=== PATIENT | female | born 1945 | race Caucasian/White ===

== ENCOUNTER 2021-04-15 19:12 | Inpatient (IN) | payer MEDICARE ==
[2021-04-15] MEDS ORDERED: Morphine 4 MG/ML VIAL SLOW IVP SCH (22:00)
[2021-04-15] MEDS ORDERED: Dextrose 5% in Water 1,000 ML IV PRN (22:02)
[2021-04-15] MEDS ORDERED: Dextrose 50% Abboject 50 ML SYRINGE SLOW IVP PRN (22:02)
[2021-04-15] MEDS ORDERED: Ondansetron PF 4 MG/2 ML Vial IVP PRN (22:02)
[2021-04-15] MEDS ORDERED: Famotidine/PF 20 mg/2ml Vial SLOW IVP SCH (22:15)
[2021-04-15 22:26] LABS: #Basophils 0.1 10x3/uL (0.0-0.2); #Eosinphils 0.1 10x3/uL (0.0-0.5); #Monocytes 0.8 10x3/uL (0.0-1.1); #Neutrophils 15.6 10x3/uL (1.5-8.4); %Basophils 0.3 % (0.0-2.0); %Eosinophils 0.3 % (0.0-6.0); %Lymphocytes 12.5 % (18.0-47.0); %Monocytes 4.1 % (0.0-10.0); Hemoglobin 15.7 g/dL (12.0-15.5); Mean Corpuscular HGB CONC 34.8 g/dL (32.0-36.0); Mean Corpuscular Hemoglobin 29.2 pg (27.0-33.0); Mean Platelet Volume 10.4 fl (7.4-10.4); Platelet Count 324 10x3/uL (150-450); RBC Distribution Width 16.2 % (11.5-14.5); Red Blood Cell (RBC) Count 5.37 10x6/uL (3.90-5.03)
[2021-04-15] MEDS ORDERED: Sodium Chloride 0.9% 1,000 ML IV SCH (22:30)
[2021-04-15 22:38] LABS: INR-International Normal Ratio 1.4; PTT 40.4 sec (22.0-33.0); Prothrombin Time 15.1 sec (9.5-12.1)
[2021-04-15 22:42] LABS: ALT (SGPT) 592 U/L (8-55); AST (SGOT) 757 U/L (5-34); Alkaline Phosphatase 580 U/L (40-110); Anion Gap 23 mmol/L (10-20); BUN (Urea Nitrogen) 78 mg/dL (9.8-20.1); Calc. Creatinine Clearance 13 mL/min (70-130); Calcium 7.2 mg/dL (7.8-10.44); Carbon Dioxide 19 mmol/L (23-31); Chloride 92 mmol/L (98-107); Cholesterol 427 mg/dl (< 200 Desired); Globulin 2.9 g/dL (2.4-3.5); Glucose 330 mg/dL (83-110); HDL Cholesterol 7 mg/dL (>60 Neg Risk); Lipase 129 U/L (8-78); Potassium 4.2 mmol/L (3.5-5.1); Protein, Total 4.9 g/dL (5.8-8.1); Sodium 130 mmol/L (136-145); Triglycerides 404 mg/dL (Less than 150)
[2021-04-15] MEDS ORDERED: Meropenem 1 GM in Sodium Chloride 0.9% 100 ML IVPB SCH (22:45)
[2021-04-15] MEDS: Sodium Chloride 0.9% 1,000 ML IV SCH (23:43)
[2021-04-16 01:15] LABS: Lactic Acid 1.7 mmol/L (0.5-2.2)
[2021-04-16] MEDS: HumaLOG 300 UNITS/3 ML VIAL SC PRN ×4 (01:40→22:42)
[2021-04-16] MEDS: Morphine 4 MG/ML VIAL SLOW IVP PRN (03:06)
[2021-04-16 08:50] LABS: Hemoglobin 14.9 g/dL (12.0-15.5); Mean Corpuscular HGB CONC 33.7 g/dL (32.0-36.0); Mean Corpuscular Hemoglobin 28.9 pg (27.0-33.0); Mean Corpuscular Volume 85.7 fl (81.6-98.3); Mean Platelet Volume 10.1 fl (7.4-10.4); Platelet Count 321 10x3/uL (150-450); RBC Distribution Width 16.5 % (11.5-14.5); Red Blood Cell (RBC) Count 5.16 10x6/uL (3.90-5.03); White Blood Cell (WBC) Count 20.8 10x3/uL (3.5-10.5)
[2021-04-16 08:52] LABS: MDiff Complete? YES
[2021-04-16 08:54] LABS: Lactic Acid 2.2 mmol/L (0.5-2.2)
[2021-04-16 08:58] LABS: ALT (SGPT) 540 U/L (8-55); AST (SGOT) 666 U/L (5-34); Albumin 1.8 g/dL (3.4-4.8); Alkaline Phosphatase 559 U/L (40-110); Anion Gap 23 mmol/L (10-20); BUN (Urea Nitrogen) 87 mg/dL (9.8-20.1); Bilirubin, Total 8.4 mg/dL (0.2-1.2); Calc. Creatinine Clearance 12 mL/min (70-130); Calcium 6.8 mg/dL (7.8-10.44); Carbon Dioxide 18 mmol/L (23-31); Chloride 95 mmol/L (98-107); Globulin 3.1 g/dL (2.4-3.5); Glucose 303 mg/dL (83-110); Potassium 4.6 mmol/L (3.5-5.1); Protein, Total 4.9 g/dL (5.8-8.1); Sodium 131 mmol/L (136-145)
[2021-04-16 09:14] LABS: Eosinophils 1 % (0-10); Lymphocytes 14 % (21-51); Monocytes 4 % (0-10); Neutrophil 81 % (42-75); Platelet Morphology Comment Appears Adequate
[2021-04-16 09:15] LABS: RBC Morphology Normal
[2021-04-16] MEDS ORDERED: Albumin 25% 25 GM/100 ML BOT IVPB SCH (09:45)
[2021-04-16] MEDS: Heparin 5,000 UNITS/ML VIAL SC SCH ×3 (11:32→22:17)
[2021-04-16] MEDS: Sodium Chloride 0.9% 1,000 ML IV SCH ×2 (11:46→15:51)
[2021-04-16] MEDS: Meropenem 500 MG in Sodium Chloride 0.9% 100 ML IVPB SCH (11:54)
[2021-04-16 12:45] LABS: Hemoglobin A1c 8.9 % (4.0-6.0)
[2021-04-16] MEDS ORDERED: PROPOFOL 20 ML ONE (13:22)
[2021-04-16] MEDS ORDERED: Fentanyl 100 MCG/2 ML VIAL ONE ×2 (13:22→15:13)
[2021-04-16] MEDS ORDERED: Dexamethasone 4 mg/ml Vial ONE (13:23)
[2021-04-16] MEDS ORDERED: Ondansetron PF 4 MG/2 ML Vial ONE (13:23)
[2021-04-16] MEDS ORDERED: Rocuronium Bromide 10 MG/ML (10ML VIAL) ONE (13:23)
[2021-04-16] MEDS ORDERED: Lidocaine 1% PF 5 ML VIAL ONE (13:23)
[2021-04-16] MEDS ORDERED: Succinylcholine 200 MG/10 ml SYRINGE FS ONE (13:23)
[2021-04-16] MEDS ORDERED: Indomethacin 50 MG SUPP PR SCH (14:00)
[2021-04-16 14:04] LABS: ANA Symphony (Qualitative) Negative (Negative); ANA Symphony (Quantitative) 0.4 Ratio (< 0.7 Negative)
[2021-04-16] MEDS ORDERED: Iopamidol 15 ML ONE (14:17)
[2021-04-16] MEDS ORDERED: PHENYLEPHRINE-NS 100 MCG/ML 10 ML SYRINGE ONE ×2 (15:13→15:28)
[2021-04-16] MEDS ORDERED: Glycopyrrolate 0.2 MG/ML 5 ML SYRINGE ONE (15:26)
[2021-04-16] MEDS ORDERED: SUGAMMADEX SODIUM 200 MG/2 ML VIAL ONE (15:57)
[2021-04-16] MEDS: Famotidine/PF 20 mg/2ml Vial SLOW IVP SCH (22:17)
[2021-04-17] MEDS: Meropenem 500 MG in Sodium Chloride 0.9% 100 ML IVPB SCH ×3 (00:12→23:36)
[2021-04-17] MEDS: Sodium Chloride 0.9% 1,000 ML IV SCH ×2 (00:16→07:27)
[2021-04-17 06:01] LABS: ALT (SGPT) 490 U/L (8-55); AST (SGOT) 522 U/L (5-34); Albumin 1.9 g/dL (3.4-4.8); Alkaline Phosphatase 591 U/L (40-110); Anion Gap 25 mmol/L (10-20); BUN (Urea Nitrogen) 106 mg/dL (9.8-20.1); Bilirubin, Total 9.5 mg/dL (0.2-1.2); Calc. Creatinine Clearance 10 mL/min (70-130); Calcium 6.2 mg/dL (7.8-10.44); Carbon Dioxide 10 mmol/L (23-31); Chloride 97 mmol/L (98-107); Globulin 3.1 g/dL (2.4-3.5); Glucose 351 mg/dL (83-110); Potassium 5.4 mmol/L (3.5-5.1); Sodium 127 mmol/L (136-145)
[2021-04-17] MEDS: HumaLOG 300 UNITS/3 ML VIAL SC PRN ×4 (06:41→21:15)
[2021-04-17 07:12] LABS: Hemoglobin 15.4 g/dL (12.0-15.5); Mean Corpuscular HGB CONC 35.2 g/dL (32.0-36.0); Mean Corpuscular Hemoglobin 29.7 pg (27.0-33.0); Mean Corpuscular Volume 84.4 fl (81.6-98.3); Mean Platelet Volume 10.3 fl (7.4-10.4); Platelet Count 298 10x3/uL (150-450); RBC Distribution Width 16.6 % (11.5-14.5); Red Blood Cell (RBC) Count 5.19 10x6/uL (3.90-5.03); White Blood Cell (WBC) Count 23.8 10x3/uL (3.5-10.5)
[2021-04-17 07:15] LABS: MDiff Complete? YES
[2021-04-17 07:21] LABS: Lymphocytes 15 % (21-51); Monocytes 5 % (0-10); Neutrophil 80 % (42-75)
[2021-04-17 07:23] LABS: Platelet Morphology Comment Appears Adequate; RBC Morphology Normal
[2021-04-17 10:13] LABS: EBV VCA IgM 40.3 U/mL (0.0-35.9); Nuclear AG IgG (EBNA) AB <18.0 U/mL (0.0-17.9)
[2021-04-17 10:23] LABS: Bilirubin, Direct 7.5 mg/dL (0.1-0.3); Bilirubin, Total 10.3 mg/dL (0.2-1.2)
[2021-04-17] MEDS: Heparin 5,000 UNITS/ML VIAL SC SCH ×3 (10:58→21:13)
[2021-04-17 11:31] LABS: Hep B Surf Ag Non-Reactive S/CO (NonReactive)
[2021-04-17 11:36] LABS: HBSAg Index 0.15 S/CO (0-0.99)
[2021-04-17 15:00] LABS: HBSAB Concentration Less than 8.00 mIU/mL; Hep B Core Total Ab Non-Reactive (NonReactive); Hep B Core Total Index 0.11 S/CO (0-0.79); Hep B Surf AB Non-Reactive (NonReactive); Hep C IgG Ab Non-Reactive (NonReactive); Hep C Index 0.09 S/CO (0-0.79)
[2021-04-17 19:56] LABS: Iron 165 ug/dL (50-170); Iron Binding Capacity, Total 140 mcg/dL (265-497)
[2021-04-17] MEDS: Lantus 1000 UNITS/10 ML VIAL SC SCH (21:14)
[2021-04-17] MEDS: Famotidine/PF 20 mg/2ml Vial SLOW IVP SCH (21:14)
[2021-04-18] MEDS: HumaLOG 300 UNITS/3 ML VIAL SC PRN ×3 (05:02→23:40)
[2021-04-18 05:22] LABS: INR-International Normal Ratio 1.3; Prothrombin Time 14.7 sec (9.5-12.1)
[2021-04-18] MEDS: Morphine 4 MG/ML VIAL SLOW IVP PRN ×3 (05:59→23:41)
[2021-04-18 07:19] LABS: #Monocytes 1.2 10x3/uL (0.0-1.1); #Neutrophils 14.1 10x3/uL (1.5-8.4); %Basophils 0.2 % (0.0-2.0); %Eosinophils 0.2 % (0.0-6.0); %Lymphocytes 12.7 % (18.0-47.0); %Monocytes 6.6 % (0.0-10.0); %Neutrophils 79.5 % (40.0-75.0); Hemoglobin 12.6 g/dL (12.0-15.5); Mean Corpuscular HGB CONC 35.2 g/dL (32.0-36.0); Mean Corpuscular Hemoglobin 29.7 pg (27.0-33.0); Mean Corpuscular Volume 84.4 fl (81.6-98.3); Mean Platelet Volume 10.6 fl (7.4-10.4); Platelet Count 222 10x3/uL (150-450); RBC Distribution Width 16.4 % (11.5-14.5); Red Blood Cell (RBC) Count 4.24 10x6/uL (3.90-5.03); White Blood Cell (WBC) Count 17.7 10x3/uL (3.5-10.5)
[2021-04-18 07:37] LABS: ALT (SGPT) 415 U/L (8-55); AST (SGOT) 381 U/L (5-34); Albumin 2.1 g/dL (3.4-4.8); Alkaline Phosphatase 530 U/L (40-110); Anion Gap 21 mmol/L (10-20); BUN (Urea Nitrogen) 80 mg/dL (9.8-20.1); Bilirubin, Total 10.7 mg/dL (0.2-1.2); Calc. Creatinine Clearance 12 mL/min (70-130); Calcium 7.2 mg/dL (7.8-10.44); Carbon Dioxide 20 mmol/L (23-31); Chloride 95 mmol/L (98-107); Globulin 2.8 g/dL (2.4-3.5); Glucose 265 mg/dL (83-110); Lipase 124 U/L (8-78); Potassium 4.4 mmol/L (3.5-5.1); Protein, Total 4.9 g/dL (5.8-8.1); Sodium 132 mmol/L (136-145)
[2021-04-18] MEDS ORDERED: Albumin 25% 25 GM/100 ML BOT IVPB SCH (09:15)
[2021-04-18] MEDS: Heparin 5,000 UNITS/ML VIAL SC SCH ×3 (13:11→23:28)
[2021-04-18] MEDS: Meropenem 500 MG in Sodium Chloride 0.9% 100 ML IVPB SCH ×2 (13:42→17:10)
[2021-04-18 16:05] LABS: Actual Bicarbonate (HCO3a) 24.6 mEq/L (22-28); Base Excess (BEa) 1.2 mEq/L (-2.0 to +3.0); CO2 Tension 34.6 mmHg (35.0-45.0); Carboxyhemoglobin (COHb) 1.2 gm% (0.0-3.0); Hemoglobin (Hb) 10.9 g/dL (12.0-16.0); O2 Tension (PaO2), arterial 74.3 mmHg (> 70.0); Potassium - ABG Lab 3.7 mmol/L (3.70-5.30); Puncture Site LRA; pH, Arterial 7.47 (7.35-7.45)
[2021-04-18] MEDS ORDERED: Dexamethasone 6 MG in Sodium Chloride 0.9% 50 ML IVPB SCH (18:00)
[2021-04-18 18:20] LABS: Actual Bicarbonate (HCO3a) 21.3 mEq/L (22-28); Base Excess (BEa) -1.2 mEq/L (-2.0 to +3.0); CO2 Tension 28.6 mmHg (35.0-45.0); Calcium, Ionized (arterial) 0.99 mmol/L (1.12-1.30); Hemoglobin (Hb) 11.1 g/dL (12.0-16.0); O2 Tension (PaO2), arterial 77.7 mmHg (> 70.0); Potassium - ABG Lab 3.9 mmol/L (3.70-5.30); Puncture Site LRA; pH, Arterial 7.49 (7.35-7.45)
[2021-04-18 20:06] LABS: #Monocytes 1.2 10x3/uL (0.0-1.1); #Neutrophils 12.8 10x3/uL (1.5-8.4); %Basophils 0.1 % (0.0-2.0); %Eosinophils 0.2 % (0.0-6.0); %Lymphocytes 16.2 % (18.0-47.0); %Monocytes 7.3 % (0.0-10.0); %Neutrophils 75.3 % (40.0-75.0); Hemoglobin 10.8 g/dL (12.0-15.5); Mean Corpuscular Hemoglobin 29.4 pg (27.0-33.0); Mean Corpuscular Volume 84.2 fl (81.6-98.3); Mean Platelet Volume 10.2 fl (7.4-10.4); Platelet Count 99 10x3/uL (150-450); RBC Distribution Width 16.6 % (11.5-14.5); Red Blood Cell (RBC) Count 3.67 10x6/uL (3.90-5.03); White Blood Cell (WBC) Count 16.9 10x3/uL (3.5-10.5)
[2021-04-18] MEDS ORDERED: Dexmedetomidine In 0.9 % NaCl 100 ML IVPB SCH (23:30)
[2021-04-18] MEDS: Lantus 1000 UNITS/10 ML VIAL SC SCH (23:38)
[2021-04-18] MEDS: Famotidine/PF 20 mg/2ml Vial SLOW IVP SCH (23:43)
[2021-04-18] MEDS: Dexamethasone 20 MG/5 ML VIAL SLOW IVP SCH (23:44)
[2021-04-19] MEDS: Meropenem 500 MG in Sodium Chloride 0.9% 100 ML IVPB SCH ×2 (02:44→15:18)
[2021-04-19] MEDS: Ventolin HFA Inhaler 60 PUFF INHALER INH PRN ×2 (08:33→14:59)
[2021-04-19 08:56] LABS: INR-International Normal Ratio 1.2; Prothrombin Time 13.5 sec (9.5-12.1)
[2021-04-19 09:00] LABS: #Eosinphils 0.1 10x3/uL (0.0-0.5); #Neutrophils 9.8 10x3/uL (1.5-8.4); %Basophils 0.1 % (0.0-2.0); %Eosinophils 0.7 % (0.0-6.0); %Lymphocytes 17.6 % (18.0-47.0); %Monocytes 7.2 % (0.0-10.0); %Neutrophils 73.6 % (40.0-75.0); ALT (SGPT) 288 U/L (8-55); AST (SGOT) 306 U/L (5-34); Albumin 2.7 g/dL (3.4-4.8); Alkaline Phosphatase 820 U/L (40-110); Anion Gap 21 mmol/L (10-20); BUN (Urea Nitrogen) 72 mg/dL (9.8-20.1); Bilirubin, Total 20.8 mg/dL (0.2-1.2); Calc. Creatinine Clearance 15 mL/min (70-130); Calcium 8.1 mg/dL (7.8-10.44); Carbon Dioxide 22 mmol/L (23-31); Chloride 95 mmol/L (98-107); Globulin 2.4 g/dL (2.4-3.5); Glucose 171 mg/dL (83-110); Hemoglobin 9.4 g/dL (12.0-15.5); Mean Corpuscular HGB CONC 34.4 g/dL (32.0-36.0); Mean Corpuscular Hemoglobin 29.5 pg (27.0-33.0); Mean Corpuscular Volume 85.6 fl (81.6-98.3); Mean Platelet Volume 10.3 fl (7.4-10.4); Platelet Count 55 10x3/uL (150-450); Potassium 4.2 mmol/L (3.5-5.1); Protein, Total 5.1 g/dL (5.8-8.1); RBC Distribution Width 17.4 % (11.5-14.5); Red Blood Cell (RBC) Count 3.19 10x6/uL (3.90-5.03); Sodium 134 mmol/L (136-145); White Blood Cell (WBC) Count 13.3 10x3/uL (3.5-10.5)
[2021-04-19] MEDS: HumaLOG 300 UNITS/3 ML VIAL SC PRN (09:03)
[2021-04-19] MEDS: Heparin 5,000 UNITS/ML VIAL SC SCH (09:44)
[2021-04-19 10:04] LABS: Anisocytosis SLIGHT = 6-15 cells (100X) (0-5/hpf); Polychromasia SLIGHT = 2-3 cells (100X) (0-2/hpf)
[2021-04-19 10:05] LABS: Schistocytes SLIGHT = 2-5 cells (100X) (0-1/hpf)
[2021-04-19 10:06] LABS: Platelet Morphology Comment Appears Decreased
[2021-04-19 11:33] LABS: SARS-CoV-2 PCR by NAA Not Detected (NotDetected)
[2021-04-19] MEDS: Dexamethasone 20 MG/5 ML VIAL SLOW IVP SCH (17:36)
[2021-04-19] MEDS: Famotidine/PF 20 mg/2ml Vial SLOW IVP SCH (21:49)
[2021-04-19] MEDS ORDERED: Famotidine/PF 20 mg/2ml Vial ONE (21:49)
[2021-04-19] MEDS: Lantus 1000 UNITS/10 ML VIAL SC SCH (21:50)
[2021-04-20] MEDS: Meropenem 500 MG in Sodium Chloride 0.9% 100 ML IVPB SCH ×2 (02:48→15:25)
[2021-04-20 05:33] LABS: INR-International Normal Ratio 1.2; Prothrombin Time 13.4 sec (9.5-12.1)
[2021-04-20 05:34] LABS: Bilirubin, Total 27.2 mg/dL (0.2-1.2)
[2021-04-20 05:51] LABS: #Monocytes 0.7 10x3/uL (0.0-1.1); #Neutrophils 9.9 10x3/uL (1.5-8.4); %Basophils 0.1 % (0.0-2.0); %Eosinophils 0.1 % (0.0-6.0); %Lymphocytes 8.9 % (18.0-47.0); %Monocytes 5.9 % (0.0-10.0); %Neutrophils 83.7 % (40.0-75.0); Hemoglobin 8.7 g/dL (12.0-15.5); Mean Corpuscular HGB CONC 35.1 g/dL (32.0-36.0); Mean Corpuscular Hemoglobin 29.6 pg (27.0-33.0); Mean Corpuscular Volume 84.4 fl (81.6-98.3); Platelet Count 50 10x3/uL (150-450); RBC Distribution Width 18.4 % (11.5-14.5); Red Blood Cell (RBC) Count 2.94 10x6/uL (3.90-5.03); White Blood Cell (WBC) Count 11.8 10x3/uL (3.5-10.5)
[2021-04-20 06:09] LABS: ALT (SGPT) 234 U/L (8-55); AST (SGOT) 306 U/L (5-34); Albumin 2.6 g/dL (3.4-4.8); Alkaline Phosphatase 1112 U/L (40-110); Anion Gap 21 mmol/L (10-20); BUN (Urea Nitrogen) 64 mg/dL (9.8-20.1); Calc. Creatinine Clearance 16 mL/min (70-130); Calcium 8.3 mg/dL (7.8-10.44); Carbon Dioxide 21 mmol/L (23-31); Chloride 96 mmol/L (98-107); Globulin 2.4 g/dL (2.4-3.5); Glucose 175 mg/dL (83-110); Potassium 4.6 mmol/L (3.5-5.1); Sodium 133 mmol/L (136-145)
[2021-04-20] MEDS: HumaLOG 300 UNITS/3 ML VIAL SC PRN ×2 (10:19→16:19)
[2021-04-20] MEDS ORDERED: Rifaximin 550 MG TAB PO SCH (11:15)
[2021-04-20 11:33] LABS: Creatinine, Urine 55.12 mg/dL (47-110)
[2021-04-20] MEDS: Morphine 4 MG/ML VIAL SLOW IVP PRN ×2 (13:42→17:17)
[2021-04-20] MEDS: Dexamethasone 20 MG/5 ML VIAL SLOW IVP SCH (17:30)
[2021-04-20] MEDS ORDERED: Famotidine/PF 20 mg/2ml Vial ONE (20:30)
[2021-04-20] MEDS: Famotidine/PF 20 mg/2ml Vial SLOW IVP SCH (20:32)
[2021-04-20] MEDS: Rifaximin 550 MG TAB PO SCH (20:34)
[2021-04-20] MEDS: Lantus 1000 UNITS/10 ML VIAL SC SCH (20:34)
[2021-04-21] MEDS: HumaLOG 300 UNITS/3 ML VIAL SC PRN ×2 (00:51→05:55)
[2021-04-21] MEDS: Meropenem 500 MG in Sodium Chloride 0.9% 100 ML IVPB SCH ×2 (02:31→15:02)
[2021-04-21 04:44] LABS: INR-International Normal Ratio 1.3; Prothrombin Time 13.8 sec (9.5-12.1)
[2021-04-21 04:55] LABS: Acetaminophen Less than 6.0 mcg/mL (10.0-30.0); Alcohol Less than 10 mg/dL (Less than 10); Salicylate Less than 8.0 mg/dL (15.0-30.0)
[2021-04-21 05:04] LABS: Bilirubin, Total 34.9 mg/dL (0.2-1.2)
[2021-04-21 05:22] LABS: Platelet Count 28 10x3/uL (150-450)
[2021-04-21 05:30] LABS: #Monocytes 0.5 10x3/uL (0.0-1.1); #Neutrophils 8.7 10x3/uL (1.5-8.4); %Basophils 0.1 % (0.0-2.0); %Eosinophils 0.1 % (0.0-6.0); %Lymphocytes 9.8 % (18.0-47.0); %Monocytes 5.1 % (0.0-10.0); %Neutrophils 83.2 % (40.0-75.0); Hemoglobin 8.2 g/dL (12.0-15.5); Mean Corpuscular HGB CONC 34.3 g/dL (32.0-36.0); Mean Corpuscular Hemoglobin 29.6 pg (27.0-33.0); Mean Corpuscular Volume 86.3 fl (81.6-98.3); RBC Distribution Width 20.8 % (11.5-14.5); Red Blood Cell (RBC) Count 2.77 10x6/uL (3.90-5.03); White Blood Cell (WBC) Count 10.4 10x3/uL (3.5-10.5)
[2021-04-21 06:02] LABS: Hypochromia MODERATE=16-30 cells (100X) (0-5/hpf); Microcytosis SLIGHT = 6-15 cells (100X) (0-5/hpf); Platelet Morphology Comment Appears Decreased
[2021-04-21 06:20] LABS: ALT (SGPT) 177 U/L (8-55); AST (SGOT) 306 U/L (5-34); Albumin 2.6 g/dL (3.4-4.8); Alkaline Phosphatase 1282 U/L (40-110); Anion Gap 21 mmol/L (10-20); BUN (Urea Nitrogen) 93 mg/dL (9.8-20.1); Calc. Creatinine Clearance 12 mL/min (70-130); Calcium 8.7 mg/dL (7.8-10.44); Carbon Dioxide 22 mmol/L (23-31); Chloride 94 mmol/L (98-107); Globulin 2.5 g/dL (2.4-3.5); Glucose 223 mg/dL (83-110); Potassium 5.2 mmol/L (3.5-5.1); Protein, Total 5.1 g/dL (5.8-8.1); Sodium 132 mmol/L (136-145)
[2021-04-21] MEDS: Rifaximin 550 MG TAB PO SCH ×2 (08:24→20:51)
[2021-04-21] MEDS ORDERED: Albumin 25% 25 GM/100 ML BOT IVPB PRN (09:57)
[2021-04-21 13:27] LABS: Bilirubin 6 (Negative); Blood, Urine 250 (Negative); Clarity Cloudy (Clear); Glucose, Urine (Dipstick) Normal (Negative); Ketone, Urine 5 mg/dL (Negative); Leukocyte 100 (Negative); Nitrite Negative (Negative); Protein, Urine (Dipstick) 100 mg/dl (Neg-Trace)
[2021-04-21 13:38] LABS: Smooth Muscle Total ABS 24 Units (0-19)
[2021-04-21 13:48] LABS: Bacteria/HPF 1+ HPF (None Seen); Squamous Epithelial 0-3 HPF (0-3)
[2021-04-21 13:49] LABS: Yeast-Budding 3+ HPF (None Seen); Yeast-Hyphae 2+ HPF (None Seen)
[2021-04-21] MEDS ORDERED: Meropenem 500 MG VIAL ONE (15:01)
[2021-04-21] MEDS ORDERED: Sodium Chloride 0.9% 100 ML ONE (15:01)
[2021-04-21] MEDS: Dexamethasone 20 MG/5 ML VIAL SLOW IVP SCH (17:41)
[2021-04-21] MEDS: Lantus 1000 UNITS/10 ML VIAL SC SCH (21:04)
[2021-04-21] MEDS: Famotidine/PF 20 mg/2ml Vial SLOW IVP SCH (21:04)
[2021-04-22] MEDS: HumaLOG 300 UNITS/3 ML VIAL SC PRN ×3 (00:34→18:17)
[2021-04-22 03:09] LABS: INR-International Normal Ratio 1.3; Prothrombin Time 14.4 sec (9.5-12.1)
[2021-04-22] MEDS: Meropenem 500 MG in Sodium Chloride 0.9% 100 ML IVPB SCH ×2 (03:15→15:28)
[2021-04-22 03:34] LABS: #Monocytes 0.4 10x3/uL (0.0-1.1); #Neutrophils 8.6 10x3/uL (1.5-8.4); %Basophils 0.1 % (0.0-2.0); %Eosinophils 0.1 % (0.0-6.0); %Lymphocytes 9.1 % (18.0-47.0); %Monocytes 4.1 % (0.0-10.0); %Neutrophils 83.7 % (40.0-75.0); Hemoglobin 7.2 g/dL (12.0-15.5); Mean Corpuscular HGB CONC 34.4 g/dL (32.0-36.0); Mean Corpuscular Hemoglobin 30.1 pg (27.0-33.0); Mean Corpuscular Volume 87.4 fl (81.6-98.3); Platelet Count 26 10x3/uL (150-450); RBC Distribution Width 22.5 % (11.5-14.5); Red Blood Cell (RBC) Count 2.39 10x6/uL (3.90-5.03); White Blood Cell (WBC) Count 10.3 10x3/uL (3.5-10.5)
[2021-04-22 04:12] LABS: HIV (1/2) Antibody/Antigen Non-Reactive (NonReactive); HIV 1/2 INDEX 0.13 S/CO (<1.00)
[2021-04-22 04:12] LABS: CMV IgG AB Greater than 10.00 U/mL (0.00-0.59)
[2021-04-22 05:18] LABS: Bilirubin, Total 40.6 mg/dL (0.2-1.2)
[2021-04-22 05:19] LABS: ALT (SGPT) 110 U/L (8-55); AST (SGOT) 259 U/L (5-34); Alkaline Phosphatase 1191 U/L (40-110); Anion Gap 21 mmol/L (10-20); BUN (Urea Nitrogen) 54 mg/dL (9.8-20.1); Calc. Creatinine Clearance 19 mL/min (70-130); Calcium 8.6 mg/dL (7.8-10.44); Carbon Dioxide 23 mmol/L (23-31); Chloride 98 mmol/L (98-107); Globulin 2.1 g/dL (2.4-3.5); Glucose 197 mg/dL (83-110); Potassium 4.1 mmol/L (3.5-5.1); Protein, Total 5.1 g/dL (5.8-8.1); Sodium 138 mmol/L (136-145)
[2021-04-22] MEDS: Rifaximin 550 MG TAB PO SCH ×2 (08:11→22:23)
[2021-04-22 13:14] LABS: Alpha-1-Antitrypsin 182 mg/dL (101-187)
[2021-04-22 14:52] LABS: EliA Vaculitis New Method **** NEW METHOD ****; Mitochondrial Ab 1.4 U/mL (<4 Negative)
[2021-04-22] MEDS: Pantoprazole 40 MG VIAL IVP SCH (22:23)
[2021-04-22] MEDS: Lantus 1000 UNITS/10 ML VIAL SC SCH (22:23)
[2021-04-23] MEDS: Meropenem 500 MG in Sodium Chloride 0.9% 100 ML IVPB SCH ×2 (02:32→14:45)
[2021-04-23 04:04] LABS: #Eosinphils 0.1 10x3/uL (0.0-0.5); #Monocytes 0.8 10x3/uL (0.0-1.1); #Neutrophils 10.7 10x3/uL (1.5-8.4); %Basophils 0.1 % (0.0-2.0); %Eosinophils 0.6 % (0.0-6.0); %Lymphocytes 11.6 % (18.0-47.0); %Monocytes 5.6 % (0.0-10.0); %Neutrophils 77.1 % (40.0-75.0); Mean Corpuscular HGB CONC 35.3 g/dL (32.0-36.0); Mean Corpuscular Hemoglobin 30.9 pg (27.0-33.0); Mean Corpuscular Volume 87.6 fl (81.6-98.3); Platelet Count 32 10x3/uL (150-450); RBC Distribution Width 22.5 % (11.5-14.5); Red Blood Cell (RBC) Count 2.91 10x6/uL (3.90-5.03); White Blood Cell (WBC) Count 13.9 10x3/uL (3.5-10.5)
[2021-04-23 04:17] LABS: Bilirubin, Total 48.4 mg/dL (0.2-1.2)
[2021-04-23 04:28] LABS: ALT (SGPT) 82 U/L (8-55); AST (SGOT) 262 U/L (5-34); Albumin 2.9 g/dL (3.4-4.8); Alkaline Phosphatase 1248 U/L (40-110); Anion Gap 20 mmol/L (10-20); BUN (Urea Nitrogen) 82 mg/dL (9.8-20.1); Calc. Creatinine Clearance 15 mL/min (70-130); Calcium 8.7 mg/dL (7.8-10.44); Carbon Dioxide 23 mmol/L (23-31); Chloride 99 mmol/L (98-107); Globulin 2.2 g/dL (2.4-3.5); Glucose 169 mg/dL (83-110); Potassium 4.4 mmol/L (3.5-5.1); Protein, Total 5.1 g/dL (5.8-8.1); Sodium 138 mmol/L (136-145)
[2021-04-23] MEDS: Pantoprazole 40 MG VIAL IVP SCH ×2 (08:43→21:18)
[2021-04-23] MEDS: Rifaximin 550 MG TAB PO SCH ×2 (08:51→23:16)
[2021-04-23 09:39] LABS: Kappa Light Chains 131.5 mg/L (3.3-19.4); Lambda Light Chain 57.2 mg/L (5.7-26.3)
[2021-04-23 13:15] LABS: Albumin-Ur 52.1 % (.); Alpha 1 - Ur 6.5 % (.); Alpha 2 - Ur 13.3 % (.); Beta-Ur 16.8 % (.); Gamma-Ur 11.3 % (.); M-Spike,% Not Observed % (Not Observed)
[2021-04-23 13:15] LABS: Albumin 2.2 g/dL (2.9-4.4); Alpha 1 0.2 g/dL (0.0-0.4); Alpha 2 0.4 g/dL (0.4-1.0); Beta 0.7 g/dL (0.7-1.3); Gamma 0.8 g/dL (0.4-1.8); Globulin, Total 2.1 g/dL (2.2-3.9); M-Spike Not Observed g/dL (Not Observed)
[2021-04-23 16:14] LABS: SARS-CoV-2 NAA Rapid Test Not Detected (NotDetected)
[2021-04-23] MEDS ORDERED: Phytonadione 10 MG in Sodium Chloride 0.9% 50 ML IVPB SCH (20:15)
[2021-04-23] MEDS: Lantus 1000 UNITS/10 ML VIAL SC SCH (21:30)
[2021-04-24] MEDS: Meropenem 500 MG in Sodium Chloride 0.9% 100 ML IVPB SCH ×2 (02:39→15:41)
[2021-04-24 04:00] LABS: INR-International Normal Ratio 1.3; Prothrombin Time 14.6 sec (9.5-12.1)
[2021-04-24 04:01] LABS: Hemoglobin 9.3 g/dL (12.0-15.5); Mean Corpuscular HGB CONC 34.3 g/dL (32.0-36.0); Mean Corpuscular Hemoglobin 30.5 pg (27.0-33.0); Mean Corpuscular Volume 88.9 fl (81.6-98.3); Platelet Count 32 10x3/uL (150-450); RBC Distribution Width 24.6 % (11.5-14.5); Red Blood Cell (RBC) Count 3.05 10x6/uL (3.90-5.03); White Blood Cell (WBC) Count 16.8 10x3/uL (3.5-10.5)
[2021-04-24 04:14] LABS: Bilirubin, Total 47.2 mg/dL (0.2-1.2)
[2021-04-24 04:19] LABS: ALT (SGPT) 62 U/L (8-55); AST (SGOT) 261 U/L (5-34); Albumin 2.8 g/dL (3.4-4.8); Alkaline Phosphatase 1243 U/L (40-110); Anion Gap 16 mmol/L (10-20); BUN (Urea Nitrogen) 51 mg/dL (9.8-20.1); Calc. Creatinine Clearance 20 mL/min (70-130); Calcium 8.7 mg/dL (7.8-10.44); Carbon Dioxide 27 mmol/L (23-31); Chloride 99 mmol/L (98-107); Globulin 2.3 g/dL (2.4-3.5); Glucose 163 mg/dL (83-110); Protein, Total 5.1 g/dL (5.8-8.1); Sodium 138 mmol/L (136-145)
[2021-04-24 07:37] LABS: Band 6 % (5-11); Eosinophils 2 % (0-10); Lymphocytes 13 % (21-51); Metamyelocyte 2 % (0-0); Monocytes 5 % (0-10); Nucleated RBC 6 % (0)
[2021-04-24] MEDS: Pantoprazole 40 MG VIAL IVP SCH ×2 (07:37→21:13)
[2021-04-24] MEDS: Rifaximin 550 MG TAB PO SCH ×2 (07:37→21:13)
[2021-04-24 07:42] LABS: Neutrophil 72 % (42-75)
[2021-04-24 07:44] LABS: Anisocytosis MARKED = >30 cells (100X) (0-5/hpf); Macrocytosis SLIGHT = 6-15 cells (100X) (0-5/hpf); Microcytosis MODERATE=15-30 cells (100X) (0-5/hpf); Poikilocytosis SLIGHT = 6-15 cells (100X) (0-5/hpf); Polychromasia SLIGHT = 2-3 cells (100X) (0-2/hpf); Schistocytes SLIGHT = 2-5 cells (100X) (0-1/hpf)
[2021-04-24 07:45] LABS: Burr Cells SLIGHT = 2-5 cells (100X) (0-1/hpf); Helmet Cells SLIGHT = 2-5 cells (100X) (0-1/hpf); Ovalocytes SLIGHT = 2-5 cells (100X) (0-1/hpf)
[2021-04-24 07:47] LABS: Large Platelets SLIGHT; Platelet Morphology Comment Appears Decreased
[2021-04-24 07:48] LABS: MDiff Complete? YES
[2021-04-24] MEDS: Lantus 1000 UNITS/10 ML VIAL SC SCH (21:12)
[2021-04-25] MEDS: Morphine 4 MG/ML VIAL SLOW IVP PRN (01:17)
[2021-04-25] MEDS: Meropenem 500 MG in Sodium Chloride 0.9% 100 ML IVPB SCH ×2 (02:17→14:33)
[2021-04-25 04:06] VITALS: BP 132/68; TEMP 98.1
[2021-04-25 04:29] LABS: ALT (SGPT) 41 U/L (8-55); AST (SGOT) 173 U/L (5-34); Albumin 2.6 g/dL (3.4-4.8); Alkaline Phosphatase 1167 U/L (40-110); Anion Gap 18 mmol/L (10-20); BUN (Urea Nitrogen) 77 mg/dL (9.8-20.1); Calc. Creatinine Clearance 15 mL/min (70-130); Calcium 8.5 mg/dL (7.8-10.44); Carbon Dioxide 25 mmol/L (23-31); Chloride 101 mmol/L (98-107); Globulin 2.1 g/dL (2.4-3.5); Glucose 203 mg/dL (83-110); Potassium 4.3 mmol/L (3.5-5.1); Protein, Total 4.7 g/dL (5.8-8.1); Sodium 140 mmol/L (136-145)
[2021-04-25 04:36] LABS: Bilirubin, Total 49.5 mg/dL (0.2-1.2)
[2021-04-25] MEDS: HumaLOG 300 UNITS/3 ML VIAL SC PRN ×2 (05:02→10:15)
[2021-04-25 05:15] VITALS: BMI 31.6
[2021-04-25 06:15] LABS: #Eosinphils 0.1 10x3/uL (0.0-0.5); #Monocytes 0.6 10x3/uL (0.0-1.1); #Neutrophils 11.2 10x3/uL (1.5-8.4); %Basophils 0.1 % (0.0-2.0); %Lymphocytes 10.7 % (18.0-47.0); %Neutrophils 79.3 % (40.0-75.0); Hemoglobin 8.4 g/dL (12.0-15.5); Mean Corpuscular Hemoglobin 31.6 pg (27.0-33.0); Mean Corpuscular Volume 90.2 fl (81.6-98.3); Platelet Count 33 10x3/uL (150-450); RBC Distribution Width 27.6 % (11.5-14.5); Red Blood Cell (RBC) Count 2.66 10x6/uL (3.90-5.03); White Blood Cell (WBC) Count 14.1 10x3/uL (3.5-10.5)
[2021-04-25 06:49] LABS: Anisocytosis MODERATE=16-30 cells (100X) (0-5/hpf); Ovalocytes SLIGHT = 2-5 cells (100X) (0-1/hpf); Polychromasia SLIGHT = 2-3 cells (100X) (0-2/hpf); Schistocytes MODERATE= 6-15 cells (100X) (0-1/hpf); Target Cells SLIGHT = 2-5 cells (100X) (0-1/hpf)
[2021-04-25 06:50] LABS: Platelet Morphology Comment Appears Decreased
[2021-04-25] MEDS: Rifaximin 550 MG TAB PO SCH (08:24)
[2021-04-25] MEDS: Pantoprazole 40 MG VIAL IVP SCH (08:24)
[2021-04-26 07:14] LABS: HSV 1 - DNA Negative (Negative); HSV 2 - DNA Negative (Negative)
[2021-04-29 16:15] LABS: Hepatitis E Virus IgG ABS Negative (Negative)
== END 2021-04-25 18:48 | disposition home or self-care (01) | DRG 871 ==
LOC: CSHTELE 19:12 → UNDOADMIN 19:12 → CSHTELE 22:02 → UNDODISIN 04-18 14:30 → CSHTELE 04-18 19:08 → CSHICU 04-18 19:08
PROVIDERS: ADMIT Student in an Organized Health Care Education/Training Program; ATTEND Family Medicine
PROC: 0F798ZZ Dilation of Common Bile Duct, Via Natural or Artificial Opening Endoscopic (ICD-10-PCS; principal; 2021-04-16)
PROC: 0F778ZZ Dilation of Common Hepatic Duct, Via Natural or Artificial Opening Endoscopic (ICD-10-PCS; 2021-04-16)
PROC: 06HY33Z Insertion of Infusion Device into Lower Vein, Percutaneous Approach (ICD-10-PCS; 2021-04-17)
PROC: 5A1D70Z Performance of Urinary Filtration, Intermittent, Less than 6 Hours Per Day (ICD-10-PCS; 2021-04-17)
DX: A41.9 Sepsis, unspecified organism (principal); K72.00 Acute and subacute hepatic failure without coma; R65.21 Severe sepsis with septic shock; K76.7 Hepatorenal syndrome; J69.0 Pneumonitis due to inhalation of food and vomit; N17.0 Acute kidney failure with tubular necrosis; G93.41 Metabolic encephalopathy; E87.2 Acidosis; E87.1 Hypo-osmolality and hyponatremia; B17.9 Acute viral hepatitis, unspecified; B02.29 Other postherpetic nervous system involvement; D62 Acute posthemorrhagic anemia; D68.9 Coagulation defect, unspecified; N18.30 Chronic kidney disease, stage 3 unspecified; E11.22 Type 2 diabetes mellitus with diabetic chronic kidney disease; Z20.822 Contact with and (suspected) exposure to COVID-19; E11.65 Type 2 diabetes mellitus with hyperglycemia; E78.2 Mixed hyperlipidemia; D69.6 Thrombocytopenia, unspecified; E83.51 Hypocalcemia; E88.09 Other disorders of plasma-protein metabolism, not elsewhere classified; E87.5 Hyperkalemia; Z98.890 Other specified postprocedural states; Z87.891 Personal history of nicotine dependence; Z79.4 Long term (current) use of insulin
CPT/HCPCS: 36415; 36416; 36430; 36600; 70450; 71045; 71275; 74176; 74330; 80053; 80061; 80307; 81001; 81256; 82103; 82104; 82105; 82140; 82247; 82390; 82550; 82570; 82728; 82805; 83036; 83516; 83540; 83550; 83605; 83615; 83690; 83883; 84145; 84156; 84165; 84166; 85025; 85379; 85610; 85730; 86038; 86140; 86225; 86644; 86645; 86664; 86665; 86704; 86706; 86709; 86790; 86803; 86850; 86900; 86901; 87040; 87340; 87389; 87529; 87798; 90935; 93005; 93010; 93306; 94664; 94760; 94762; C9113; G0257; J0133; J1100; J1610; J1644; J1815; J2185; J2270; J2405; J2704; J3010; J3430; J3490; J7050; J7620; P9016; P9047; Q9967; S0028; U0002; U0003; U0005